=== PATIENT | male | born 1980 | race Caucasian/White ===

== ENCOUNTER 2018-04-10 09:57 | Inpatient (IN) | payer MEDICAID, OTHER ==
[~2018-04-10] VITALS: Ht 182.9 cm; Wt 65.2 kg
[2018-04-10] MEDS ORDERED: THIAMINE 100MG TABLET ONE (10:15)
[2018-04-10] MEDS ORDERED: LORazepam 2 MG/ML, 1ML ONE (10:16)
[2018-04-10 10:27] LABS: BASOPHILS # (AUTO) 0.01 x10^3/uL (0-0.1); BASOPHILS % (AUTO) 0 % (0-1); EOSINOPHILS % (AUTO) 0 % (1-7); LYMPHOCYTES % (AUTO) 2 % (22-44); MD NO; MEAN CORPUSCULAR HEMOGLOBIN 35.6 pg (27.5-34.5); MEAN CORPUSCULAR HGB CONC 34.6 g/dL (33.2-36.2); MEAN CORPUSCULAR VOLUME 102.9 fL (81-97); MEAN PLATELET VOLUME 7.4 fL (7.4-10.4); MONOCYTES # (AUTO) 0.51 x10^3/uL (0.2-0.8); MONOCYTES % (AUTO) 5 % (2-9); NEUTROPHILS # (AUTO) 8.88 x10^3/uL (1.8-6.8); NEUTROPHILS % (AUTO) 93 % (42-75); PLATELET COUNT 244 x10^3/uL (130-400); RED BLOOD COUNT 3.95 x10^6/uL (4.38-5.82); RED CELL DISTRIBUTION WIDTH 14.5 % (9.4-14.8)
[2018-04-10] MEDS ORDERED: THIAMINE 100MG TABLET PO ONE (10:30)
[2018-04-10] MEDS ORDERED: SODIUM CHLORIDE FLUSH 10ML SYR IVF ONE (10:30)
[2018-04-10] MEDS ORDERED: LORazepam 2 MG/ML, 1ML IVPush ONE (10:30)
[2018-04-10 10:40] LABS: ALANINE AMINOTRANSFERASE 105 U/L (12-78); ALBUMIN 3.9 g/dL (3.4-5.0); ANION GAP 21 mmol/L (5-15); CALCIUM 8.3 mg/dL (8.5-10.1); CHLORIDE 100 mmol/L (98-107); CREATININE 1.09 mg/dL (0.7-1.3)
[2018-04-10 10:42] LABS: ALKALINE PHOSPHATASE 90 U/L (45-117); BILIRUBIN,TOTAL 1.2 mg/dL (0.2-1.0); TOTAL PROTEIN 7.8 g/dL (6.4-8.2)
[2018-04-10] MEDS ORDERED: MAGNESIUM SULFATE 1 GM, THIAMINE 100 MG, FOLIC ACID 1 MG, MVI ADULT 10 ML in SODIUM CHL... IV ONE (12:00)
[2018-04-10] MEDS ORDERED: POLYETHYLENE GLYCOL 17 GM PACKET PO PRN (12:30)
[2018-04-10] MEDS ORDERED: DOCUSATE 100 MG CAPSULE PO PRN (12:30)
[2018-04-10] MEDS ORDERED: ACETAMINOPHEN 325 MG TABLET PO PRN (12:30)
[2018-04-10] MEDS ORDERED: ONDANSETRON 2MG/ML, 2ML IVPush PRN (12:30)
[2018-04-10] MEDS ORDERED: LABETALOL 5MG/ML, 20ML IVPush PRN (12:30)
[2018-04-10] MEDS ORDERED: BISACODYL 10 MG SUPP PR PRN (12:30)
[2018-04-10] MEDS ORDERED: MAGNESIUM SULFATE PMX 2GM/50ML 50 ML IV ONE (12:30)
[2018-04-10] MEDS ORDERED: PROMETHAZINE 25 MG/ML, 1ML IM ONE (12:30)
[2018-04-10 12:45] LABS: MICROSCOPIC INDICATED
[2018-04-10 13:05] LABS: CULTURE INDICATED? YES
[2018-04-10 13:44] VITALS: BP 135/87
[2018-04-10 14:06] VITALS: BP 135/85
[2018-04-10] MEDS: BACLOFEN 10 MG TABLET PO SCH ×2 (14:46→20:20)
[2018-04-10] MEDS: ENOXAPARIN 40 MG/0.4 ML SQ SCH (14:46)
[2018-04-10] MEDS: D5%-0.45NACL+KCL 20MEQ 1,000 ML IV SCH (14:56)
[2018-04-10] MEDS: LORazepam 2 MG/ML, 1ML IVPush PRN (14:56)
[2018-04-10 19:08] VITALS: BP 144/92
[2018-04-11 01:06] VITALS: BP 124/80
[2018-04-11] MEDS: D5%-0.45NACL+KCL 20MEQ 1,000 ML IV SCH (05:12)
[2018-04-11 06:31] LABS: CALCIUM 8.6 mg/dL (8.5-10.1); CHLORIDE 100 mmol/L (98-107)
[2018-04-11 06:35] LABS: ALANINE AMINOTRANSFERASE 87 U/L (12-78); ALBUMIN 3.4 g/dL (3.4-5.0); ALKALINE PHOSPHATASE 76 U/L (45-117); ANION GAP 11 mmol/L (5-15); BILIRUBIN,TOTAL 1.1 mg/dL (0.2-1.0); CREATININE 0.74 mg/dL (0.7-1.3); TOTAL PROTEIN 7.2 g/dL (6.4-8.2)
[2018-04-11 07:10] VITALS: BP 154/97
[2018-04-11] MEDS: BACLOFEN 10 MG TABLET PO SCH ×3 (07:53→20:30)
[2018-04-11] MEDS: THIAMINE 100MG TABLET PO SCH (07:53)
[2018-04-11] MEDS: POTASSIUM CHLORIDE 20 MEQ TAB.ER.PRT PO SCH ×2 (07:53→17:27)
[2018-04-11] MEDS: FOLIC ACID 1 MG TABLET PO SCH (07:53)
[2018-04-11] MEDS: MULTIVITAMIN 1 TABLET PO SCH (07:53)
[2018-04-11 14:30] VITALS: BP 133/85
[2018-04-11] MEDS: ENOXAPARIN 40 MG/0.4 ML SQ SCH (15:00)
[2018-04-11] MEDS: LORazepam 2 MG/ML, 1ML IVPush PRN (17:31)
[2018-04-11 19:49] VITALS: BP 128/82
[2018-04-12 02:58] VITALS: BP 154/98
[2018-04-12 05:37] LABS: ALBUMIN 3.3 g/dL (3.4-5.0); ANION GAP 11 mmol/L (5-15); CALCIUM 8.6 mg/dL (8.5-10.1); CHLORIDE 102 mmol/L (98-107)
[2018-04-12 05:39] LABS: BASOPHILS # (AUTO) 0.06 x10^3/uL (0-0.1); BASOPHILS % (AUTO) 1 % (0-1); EOSINOPHILS # (AUTO) 0.13 x10^3/uL (0-0.4); EOSINOPHILS % (AUTO) 2 % (1-7); LYMPHOCYTES # (AUTO) 1.16 x10^3/uL (1-3.4); LYMPHOCYTES % (AUTO) 21 % (22-44); MD NO; MEAN CORPUSCULAR HEMOGLOBIN 34.9 pg (27.5-34.5); MEAN CORPUSCULAR HGB CONC 33.8 g/dL (33.2-36.2); MEAN CORPUSCULAR VOLUME 103.5 fL (81-97); MEAN PLATELET VOLUME 8.2 fL (7.4-10.4); MONOCYTES # (AUTO) 0.99 x10^3/uL (0.2-0.8); MONOCYTES % (AUTO) 18 % (2-9); NEUTROPHILS # (AUTO) 3.32 x10^3/uL (1.8-6.8); NEUTROPHILS % (AUTO) 59 % (42-75); PLATELET COUNT 203 x10^3/uL (130-400); RED BLOOD COUNT 4.01 x10^6/uL (4.38-5.82); RED CELL DISTRIBUTION WIDTH 14.2 % (9.4-14.8)
[2018-04-12 05:41] LABS: ALANINE AMINOTRANSFERASE 94 U/L (12-78); ALKALINE PHOSPHATASE 71 U/L (45-117); CREATININE 0.66 mg/dL (0.7-1.3); TOTAL PROTEIN 7.3 g/dL (6.4-8.2)
[2018-04-12 07:15] VITALS: BP 137/87
[2018-04-12] MEDS: FOLIC ACID 1 MG TABLET PO SCH (08:04)
[2018-04-12] MEDS: MULTIVITAMIN 1 TABLET PO SCH (08:05)
[2018-04-12] MEDS: POTASSIUM CHLORIDE 20 MEQ TAB.ER.PRT PO SCH (08:05)
[2018-04-12] MEDS: BACLOFEN 10 MG TABLET PO SCH ×3 (08:05→20:38)
[2018-04-12] MEDS: THIAMINE 100MG TABLET PO SCH (08:05)
[2018-04-12] MEDS: LORazepam 2 MG/ML, 1ML IVPush PRN ×3 (09:52→20:38)
[2018-04-12 12:06] VITALS: BP 132/87
[2018-04-12] MEDS: ENOXAPARIN 40 MG/0.4 ML SQ SCH (15:06)
[2018-04-12 19:48] VITALS: BP 137/83
[2018-04-13 03:22] VITALS: BP 105/73
[2018-04-13 07:41] VITALS: BP 142/96
[2018-04-13] MEDS: THIAMINE 100MG TABLET PO SCH (08:29)
[2018-04-13] MEDS: BACLOFEN 10 MG TABLET PO SCH (08:29)
[2018-04-13] MEDS: FOLIC ACID 1 MG TABLET PO SCH (08:29)
[2018-04-13] MEDS: MULTIVITAMIN 1 TABLET PO SCH (08:29)
[2018-04-13 14:15] VITALS: BP 137/93
[2018-04-13] MEDS: ENOXAPARIN 40 MG/0.4 ML SQ SCH (15:00)
== END 2018-04-13 16:42 | disposition home or self-care (01) | DRG 641 ==
LOC: ED 11:17 → EDIP 12:08 → 4WST 13:40
PROVIDERS: ADMIT Internal Medicine; ATTEND Internal Medicine
DX: E87.6 Hypokalemia (principal); F10.239 Alcohol dependence with withdrawal, unspecified; R56.9 Unspecified convulsions; E87.2 Acidosis; F17.200 Nicotine dependence, unspecified, uncomplicated; E83.42 Hypomagnesemia; D75.89 Other specified diseases of blood and blood-forming organs; Z71.41 Alcohol abuse counseling and surveillance of alcoholic
CPT/HCPCS: 36415; 80053; 80307; 81001; 83735; 85025; 87086; 93005; 96374; 99285; G0378; J1650; J2060; J3475; J3480

== ENCOUNTER 2018-05-01 21:23 | Emergency (ER) | payer SELFPAY ==
[~2018-05-01] VITALS: Ht 180.3 cm; Wt 70.2 kg
[2018-05-01 21:28] VITALS: BP 138/92
--- NOTE | 2018-05-01 21:44 | NUR ---
PT STATED HE IS CURRENTLY DETOXING FROM ETOH. LAST DRINK JUST BEFORE 1900 - MIKES HARD LEMONADE AND A SHOT OF GIN. PT STATED HE WAS AT [facility] AND CALLED EMT BECAUSE HE WAS DETOXING, STATED HE WAS AT [facility] TODAY FOR SAME AND RECIEVED LIBRIUM AND WAS D/C'D. MONITORS APPLIED, SIDERAILS UP X2, CALL LIGHT WITHIN REACH, PA AT PT'S BEDSIDE FOR EVAL.
== END 2018-05-01 22:22 | disposition home or self-care (01) ==
LOC: ED 22:05
DX: F10.129 Alcohol abuse with intoxication, unspecified (principal); F17.210 Nicotine dependence, cigarettes, uncomplicated; F19.10 Other psychoactive substance abuse, uncomplicated; Y90.9 Presence of alcohol in blood, level not specified
CPT/HCPCS: 99283